=== PATIENT | female | born 1940 | race Caucasian/White ===

== ENCOUNTER 2016-04-22 11:44 | Outpatient (CLI) | payer MEDICARE, OTHER | END 2016-04-22 11:45 | DX: M81.0 Age-related osteoporosis without current pathological fracture (principal); I10 Essential (primary) hypertension ==

== ENCOUNTER 2016-06-10 08:00 | Outpatient (CLI) | payer MEDICARE, OTHER | END 2016-06-10 08:01 | disposition home or self-care (01) | DX: E78.2 Mixed hyperlipidemia (principal); Z79.899 Other long term (current) drug therapy ==

== ENCOUNTER 2016-06-13 09:35 | Day surgery (SDC) | payer MEDICARE, OTHER ==
[2016-06-13] MEDS ORDERED: LACTATED RINGERS 1,000 ML IV ONE (09:52)
[2016-06-13] MEDS ORDERED: MIDAZOLAM 2 MG/2 ML VIAL IVP ONE (10:13)
[2016-06-13] MEDS ORDERED: fentaNYL 100 MCG/2 ML VIAL IVP ONE (10:13)
== END 2016-06-13 09:36 | disposition home or self-care (01) ==
PROC: 0DJD8ZZ Inspection of Lower Intestinal Tract, Via Natural or Artificial Opening Endoscopic (ICD-10-PCS; 2016-06-13)
PROC: 0DB38ZX Excision of Lower Esophagus, Via Natural or Artificial Opening Endoscopic, Diagnostic (ICD-10-PCS; principal; 2016-06-13 10:30)
PROC: 0DB68ZX Excision of Stomach, Via Natural or Artificial Opening Endoscopic, Diagnostic (ICD-10-PCS; 2016-06-13 10:30)
DX: Z12.11 Encounter for screening for malignant neoplasm of colon (principal); K21.9 Gastro-esophageal reflux disease without esophagitis; R49.0 Dysphonia; K29.60 Other gastritis without bleeding; K64.4 Residual hemorrhoidal skin tags; K64.8 Other hemorrhoids; E78.5 Hyperlipidemia, unspecified; I10 Essential (primary) hypertension; Z90.710 Acquired absence of both cervix and uterus; Z88.2 Allergy status to sulfonamides; Z82.3 Family history of stroke; Z80.1 Family history of malignant neoplasm of trachea, bronchus and lung; Z79.82 Long term (current) use of aspirin; Z80.8 Family history of malignant neoplasm of other organs or systems; Z82.61 Family history of arthritis; Z82.62 Family history of osteoporosis
CPT/HCPCS: 43239; G0121; J7120

== ENCOUNTER 2016-09-06 10:51 | Outpatient (CLI) | payer MEDICARE, OTHER ==
[2016-09-06 13:46] LABS: CHOL/HDL RATIO 4.1 (<4.4); CHOLESTEROL 260 mg/dL; HDL CHOLESTEROL 63 mg/dL; LDL/HDL RATIO 2.9 (<4.4); TRIGLYCERIDES 85 mg/dL; VLDL CHOLESTEROL 17 mg/dL
== END 2016-09-06 10:52 | disposition home or self-care (01) ==
LOC: LAB.N 10:51
PROVIDERS: ATTEND Nurse Practitioner Primary Care
DX: E78.2 Mixed hyperlipidemia (principal)
CPT/HCPCS: 36415; 80061

== ENCOUNTER 2017-01-08 14:58 | Outpatient (CLI) | payer MEDICARE, OTHER ==
--- NOTE | 2017-01-09 09:23 | XRAY Report ---
FOUR-VIEW LEFT WRIST: 01/08/2017 CLINICAL INDICATION: Joint pain. FINDINGS: AP, lateral, oblique, scaphoid views of the left wrist demonstrate osteoarthritis of the 1 st carpometacarpal joint and mid carpal row. There is no evidence of acute fracture or dislocation. No foreign body is seen in the soft tissues. IMPRESSION: OSTEOARTHRITIS. JOB #: [id number] EXT JOB #:[id number]
== END 2017-01-08 14:59 | disposition home or self-care (01) ==
LOC: DI 14:58
PROVIDERS: ATTEND Nurse Practitioner Primary Care
DX: M19.032 Primary osteoarthritis, left wrist (principal)

== ENCOUNTER 2017-05-21 08:00 | Outpatient (CLI) | payer MEDICARE, OTHER ==
[2017-05-21 13:32] LABS: BASOPHILS % (AUTO) 0.9 %; EOSINOPHILS # (AUTO) 0.1 10^3/uL (0.0-0.7); EOSINOPHILS % (AUTO) 2.4 %; HGB - HEMOGLOBIN 13.7 g/dL (12.0-16.0); LYMPHOCYTES # (AUTO) 1.7 10^3/uL (1.5-3.5); LYMPHOCYTES % (AUTO) 32.8 %; MEAN CORPUSCULAR HEMOGLOBIN 31.8 pg (27.0-31.0); MEAN CORPUSCULAR HGB CONC 33.5 g/dL (32.0-36.0); MEAN CORPUSCULAR VOLUME 94.7 fL (81.0-99.0); MEAN PLATELET VOLUME 8.8 fL (7.9-10.8); MONOCYTES # (AUTO) 0.4 10^3/uL (0.0-1.0); MONOCYTES % (AUTO) 8.4 %; NEUTROPHILS # (AUTO) 2.8 10^3/uL (1.5-6.6); NEUTROPHILS % (AUTO) 55.5 %; PLT - PLATELET COUNT 268 10^3/uL (130-450); RED BLOOD COUNT 4.33 10^6/uL (4.20-5.40); RED CELL DISTRIBUTION WIDTH 12.7 % (12.0-15.0); WHITE BLOOD COUNT 5.1 x10^3/uL (4.8-10.8)
[2017-05-21 13:46] LABS: ALBUMIN 4.3 g/dL (3.2-5.5); ALBUMIN/GLOBULIN RATIO 1.3 (1.0-2.2); ALKALINE PHOSPHATASE 62 IU/L (42-121); ALT ALANINE AMINOTRANSFERASE 20 IU/L (10-60); AST ASPARTATE AMINOTRANSFERASE 21 IU/L (10-42); BILIRUBIN,TOTAL 0.6 mg/dL (0.2-1.0); BUN - BLOOD UREA NITROGEN 21 mg/dL (6-20); CALCIUM 9.3 mg/dL (8.5-10.3); CARBON DIOXIDE - CO2 32 mmol/L (21-32); CHLORIDE 98 mmol/L (101-111); CHOL/HDL RATIO 3.3 (<4.4); CHOLESTEROL 256 mg/dL; CREATININE 0.7 mg/dL (0.4-1.0); GFR - MDRD 82 (>89); GLUCOSE 93 mg/dL (70-100); HDL CHOLESTEROL 77 mg/dL; LDL CHOLESTEROL,CALCULATED 161 mg/dL; LDL/HDL RATIO 2.1 (<4.4); SODIUM 136 mmol/L (135-145); TOTAL PROTEIN 7.6 g/dL (6.7-8.2); VLDL CHOLESTEROL 18 mg/dL
== END 2017-05-21 08:01 ==
LOC: LAB.R 08:00
PROVIDERS: ATTEND Nurse Practitioner Primary Care
DX: E55.9 Vitamin D deficiency, unspecified (principal); M81.0 Age-related osteoporosis without current pathological fracture; I10 Essential (primary) hypertension; R53.82 Chronic fatigue, unspecified; E78.5 Hyperlipidemia, unspecified; K21.9 Gastro-esophageal reflux disease without esophagitis
CPT/HCPCS: 80053; 80061; 82306; 83721; 85025

== ENCOUNTER 2017-08-06 10:30 | Outpatient (CLI) | payer MEDICARE, OTHER ==
--- NOTE | 2017-08-06 14:56 | XRAY Report ---
Procedure Date: 08/06/2017 Accession Number: [id number] / [id number] Procedure: XR - Hips 2V BILAT CPT Code: FULL RESULT: EXAM: Hips 2V BILAT DATE: 08/06/2017 10:53 AM CLINICAL HISTORY: OSTEOARTHRITIS,HIPS,BILATERAL COMPARISON: None. TECHNIQUE: 1 view of the pelvis and 1 view of each hip. FINDINGS: Bones: Normal. No fracture or bone lesion. Joints: Mild bilateral hip osteoarthritis. Soft Tissues: Normal. No soft tissue swelling. IMPRESSION: Mild osteoarthritis. RADIA
== END 2017-08-06 10:31 | disposition home or self-care (01) ==
LOC: DI 10:30
PROVIDERS: ATTEND Nurse Practitioner Primary Care
DX: M16.0 Bilateral primary osteoarthritis of hip (principal)
CPT/HCPCS: 73521

== ENCOUNTER 2018-02-14 14:14 | Outpatient (CLI) | payer MEDICARE, OTHER | END 2018-02-14 14:15 | disposition short-term general hospital (02) | LOC: EMS 14:14 | PROVIDERS: ATTEND Surgery | DX: R06.00 Dyspnea, unspecified (principal) | CPT/HCPCS: A0425; A0429 ==

== ENCOUNTER 2018-02-19 08:00 | Outpatient (CLI) | payer MEDICARE, OTHER | END 2018-02-19 23:59 | LOC: LAB.R 08:00 | PROVIDERS: ATTEND Physician Assistant Medical | DX: N39.0 Urinary tract infection, site not specified (principal) | CPT/HCPCS: 87086 ==

== ENCOUNTER 2019-08-13 20:37 | Emergency (ER) | payer MEDICARE, OTHER ==
[2019-08-13] MEDS ORDERED: TETANUS/DIPHTHERIA/PERTUSSIS 0.5 ML SYRINGE IM ONE (20:54)
--- NOTE | 2019-08-13 20:56 | ED Physician Documentation ---
PD HPI MAJOR TRAUMA - Stated complaint Stated Complaint: FACE PX/GLF - Chief complaint Chief Complaint: Trauma Hd/Nk - History obtained from History obtained from: Patient - Additional information Additional information: 79-year-old woman with unknown tetanus status fell 3 days ago, she tripped on a curb and went straight forward and hit her face on the ground patient. Still has persistent pain and swelling of the nose, facial bones and head. Feels wobbly. No nausea or vomiting. No other injuries. Tetanus is unknown. Review of Systems Constitutional: reports: Reviewed and negative Ears: reports: Reviewed and negative Nose: reports: Reviewed and negative Throat: reports: Reviewed and negative Cardiac: reports: Reviewed and negative Respiratory: reports: Reviewed and negative PD PAST MEDICAL HISTORY - Past Medical History Cardiovascular: High cholesterol, Other Endocrine/Autoimmune: None Psych: None Musculoskeletal: Osteoarthritis, Fibromyalgia - Past Surgical History /CLASSIFICATION CLERK: Hysterectomy - Present Medications Home Medications: Ambulatory Orders Medication Instructions Recorded Confirmed Amitriptyline HCl 25 mg PO DAILY 08/20/14 06/12/16 atenoloL [Atenolol] 25 mg PO DAILY 08/20/14 06/12/16 Aspirin [Adult Low Dose Aspirin EC] 81 mg PO DAILY 06/12/16 06/12/16 Venlafaxine ER [Effexor ER] 75 mg PO DAILY 06/12/16 06/12/16 - Allergies Allergies/Adverse Reactions: Allergies Allergy/AdvReac Type Severity Reaction Status Date / Time Sulfa (Sulfonamide Allergy Unknown Verified 08/13/19 20:40 Antibiotics) Khyfmpw-Iso-Zik Reductase AdvReac Unknown Verified 08/13/19 20:40 Inhibitor - Social History Does the pt smoke?: No Smoking Status: Never smoker Does the pt drink ETOH?: No Does the pt have substance abuse?: No - POLST Patient has POLST: No PD ED PE NORMAL - Vitals Vital signs reviewed: Yes - General General: Alert and oriented X 3, No acute distress - HEENT HEENT: Other (She has some areas of swelling and tenderness on either side of the parietal scalp, the neck is completely nontender. She is tender over the nares and the left inferior orbital rim. No evidence of entrapment.) - Neck Neck: Supple, no meningeal sign, No bony TTP - Extremities Extremities: No deformity, No tenderness to palpate, Normal ROM s pain, No edema, No calf tenderness / cord - Neuro Neuro: Alert and oriented X 3, No motor deficit, No sensory deficit, Normal speech Results - Vitals Vitals: Vital Signs - 24 hr 08/13/19 08/13/19 20:40 21:46 Temperature 36.6 C Heart Rate 87 81 Respiratory 14 18 Rate Blood Pressure 168/93 H 155/92 H O2 Saturation 99 98 Oxygen O2 Source Room air - Rads (name of study) CT Head Radiology: EMP read contemporaneously (MARJAN souza) PD MEDICAL DECISION MAKING - ED course ED course: 79-year-old woman with facial and head injuries after a ground-level fall a few days ago. Potential for facial fractures on exam but not corroborated on CT imaging. Her wounds were closely explored after CT imaging and irrigated and scrubbed a bit with gauze and no foreign bodies were identified. The wound seemed too shallow to be harboring any hidden foreign bodies. Departure - Departure Disposition: 01 Home, Self Care Clinical Impression: Concussion Qualifiers: Encounter type: initial encounter Loss of consciousness presence/duration: without LOC Qualified Code(s): S06.0X0A - Concussion without loss of consciousness, initial encounter Facial contusion Qualifiers: Encounter type: initial encounter Qualified Code(s): S00.83XA - Contusion of other part of head, initial encounter Condition: Good Record reviewed to determine appropriate education?: Yes Instructions: ED Head Injury Closed, ED Abrasion Comments: Follow-up with your doctor as needed, return for new or worsening symptoms.
[2019-08-13 21:47] VITALS: BP 155/92
--- NOTE | 2019-08-13 22:01 | CT Report ---
PROCEDURE: HEAD WO INDICATIONS: head inj TECHNIQUE: Noncontrast 4.5 mm thick angled axial sections acquired from the foramen magnum to the vertex. For r adiation dose reduction, the following was used: automated exposure control, adjustment of mA and/or kV according to patient size. COMPARISON: MRI brain 08/20/2014, CT maxillofacial 08/13/2019 FINDINGS: Image quality: Excellent. CSF spaces: Basal cisterns are patent. No extra-axial fluid collections. Ventricles are normal in size and shape. Brain: No midline shift. No intracranial masses or hemorrhage. Mcelroy-white matter interface is norm al. Skull and face: Calvarium and visualized facial bones are intact, without suspicious lesions. Sinuses: Visualized sinuses and mastoids are clear. IMPRESSION: 1. No acute intracranial process. 2. Moderate atrophy and chronic microvascular ischemic changes. Reviewed by: Debra Valencia MD on 08/13/2019 9:59 PM PDT Approved by: Debra Valencia MD on 08/13/2019 9:59 PM PDT Station ID: [id number]
--- NOTE | 2019-08-13 22:03 | CT Report ---
PROCEDURE: MAXILLOFACIAL WO INDICATIONS: facial pain/inj TECHNIQUE: Noncontrast 1.5 mm thick axial images acquired from the mandible through the frontal sinuses, with co nilesh and sagittal reformatting. For radiation dose reduction, the following was used: automated ex posure control, adjustment of mA and/or kV according to patient size. COMPARISON: CT head 08/13/2019, MR brain 08/20/2014 FINDINGS: Image quality: Excellent. Bones and teeth: Orbital franks are intact. Sinus franks show no fracture or deformity. Nasal bones and septum are intact. Visualized portions of the mandible demonstrate no fractures or subluxation. Zygomatic arches are intact. Pterygoid plates are intact. Visualized portions of the skull base an d auditory canals are intact. Sinuses: Paranasal sinuses are aerated, without fluid levels, mucosal thickening, or mucoceles. Mas toid air cells are aerated. Soft tissues: No edema, masses, or fluid collections. No enlarged lymph nodes. There are multiple s cattered punctate areas of increased density identified within the skin surface of the 4 head extendi ng to the perinasal soft tissues. Vascular: Visualized vascular structures appear normal in the absence of contrast. Bony vascular fo ramina and canals are intact. IMPRESSION: 1. No visualized fracture. 2. Punctate areas of increased density within the skin of the 4 head and perinasal soft tissues. This could represent areas of debris secondary to trauma. Reviewed by: Debra Valencia MD on 08/13/2019 10:02 PM PDT Approved by: Debra Valencia MD on 08/13/2019 10:02 PM PDT Station ID: [id number]
== END 2019-08-13 22:14 | disposition home or self-care (01) ==
LOC: ED 20:37
DX: S06.0X0A Concussion without loss of consciousness, initial encounter (principal); S00.83XA Contusion of other part of head, initial encounter; W01.0XXA Fall on same level from slipping, tripping and stumbling without subsequent striking against object, initial encounter; Y92.480 Sidewalk as the place of occurrence of the external cause; Z23 Encounter for immunization; Z79.82 Long term (current) use of aspirin
CPT/HCPCS: 70450; 70486; 90471; 99284